=== PATIENT | female | born 1990 | race Two or more races ===

== ENCOUNTER 2020-07-25 15:50 | Outpatient (CLI) | payer OTHER | END 2020-07-25 16:20 | disposition home or self-care (01) | LOC: NST 15:50 | PROVIDERS: ATTEND Obstetrics & Gynecology | DX: Z34.83 Encounter for supervision of other normal pregnancy, third trimester (principal) ==

== ENCOUNTER 2021-06-04 10:14 | Outpatient (CLI) | payer OTHER | END 2021-06-04 10:39 | disposition home or self-care (01) | LOC: RAD 10:14 | PROVIDERS: ATTEND Chiropractor Independent Medical Examiner | DX: R07.89 Other chest pain (principal) ==

== ENCOUNTER 2022-05-28 14:06 | Outpatient (CLI) | payer OTHER | END 2022-05-28 14:16 | disposition home or self-care (01) | LOC: SONOGRAMA 14:06 | PROVIDERS: ATTEND Internal Medicine Endocrinology, Diabetes & Metabolism | DX: E04.8 Other specified nontoxic goiter (principal) ==

== ENCOUNTER 2023-03-25 11:44 | Outpatient (CLI) | payer OTHER | END 2023-03-25 11:51 | disposition home or self-care (01) | LOC: MAMO-SONO 11:44 | DX: N64.51 Induration of breast (principal) ==

== ENCOUNTER 2025-09-19 20:14 | Emergency (ER) | payer OTHER ==
[~2025-09-19] VITALS: Ht 154.9 cm; Wt 61.2 kg
[~2025-09-19 20:14] MED LIST: OSEL75CA PO; SYNTHROID88 MCG
[2025-09-19 21:16] VITALS: BP 119/82; O2SAT 100
[2025-09-19] MEDS ORDERED: CEFTRIAXONE SODIUM 1,000 MG VIAL IV ONE (22:30)
[2025-09-19] MEDS ORDERED: KETOROLAC TROMETHAMINE 30 MG VIAL IV ONE (22:30)
[2025-09-19] MEDS ORDERED: DEXAMETHASONE SODIUM PHOSPHATE 4 MG/ML VIAL IV ONE (22:30)
[2025-09-19] MEDS ORDERED: 0.9 % SODIUM CHLORIDE 500 ML IV ONE (22:30)
[2025-09-20 00:29] LABS: BASO % 0.3 % (0.1-1.2); EOS # 0.06 (0.04-0.54); EOS % 0.6 % (0.7-7.0); LYMPH # 1.45 (1.18-3.74); LYMPH % 13.8 % (19.3-53.1); MEAN PLATELET VOLUME 10.60 fl (9.4-12.4); MONO # 0.76 (0.24-0.82); MONO % 7.2 % (4.7-12.5); NEUT # 8.19 (1.56-6.13); NEUT % 77.9 % (34.0-71.1); RED CELL DISTRIBUTION WIDTH 13.5 % (11.6-14.4)
[2025-09-20 00:59] LABS: BUN CREA RATIO 20 (7.0-25.0); CREATININE SERUM 0.96 mg/dL (0.55-1.02); GFR 66.14; GLUCOSE FASTING 112 mg/dL (65-100); OSMOLALITY SERUM 282 MOSM/KG (275-295)
[2025-09-20 01:16] LABS: HCG QUANTITATIVE < 1 mUI/mL (1-3)
[2025-09-20 01:31] LABS: URINE APPEARANCE Clear; URINE BILIRRUBIN Negative (NEGATIVE); URINE BLOOD Moderate; URINE COLOR Yellow; URINE GLUCOSE Negative (NEGATIVE); URINE KETONE Negative (NEGATIVE); URINE LEUKOCYTE Moderate; URINE NITRATE Negative; URINE PROTEIN Negative (NEGATIVE); URINE UROBILINOGEN 0.2 E.U./dl
[2025-09-20 01:36] LABS: URINE BACTERIA 654.0 uL (0.0-1933); URINE CAST 0.00 uL (0.0-1.40); URINE EPITHELIAL CELLS 6.3 uL (0.0-38.8); URINE RBC 35.9 uL (0.0-20.8); URINE WBC 309.0 uL (0.0-23.2)
[2025-09-20] MEDS ORDERED: LEVOFLOXACIN750 MG PO (03:10)
[2025-09-20] MEDS ORDERED: PYRIDIUM DS200 MG PO (03:10)
== END 2025-09-20 05:55 | disposition home or self-care (01) ==
LOC: ER 20:15
PROVIDERS: Behavior Technician
DX: N39.0 Urinary tract infection, site not specified (principal); R10.24 Suprapubic pain